=== PATIENT | female | born 1975 | race Caucasian/White ===

== ENCOUNTER 2016-04-30 19:30 | Emergency (ER) ==
[2016-04-30] MEDS ORDERED: NORCO-7.5 PO ONE (20:33)
[2016-04-30] MEDS ORDERED: ZOFRAN ODT PO ONE (20:33)
[2016-04-30 20:57] VITALS: BP 108/60
--- NOTE | 2016-04-30 20:57 | PROVIDER DOCUMENTATION ---
HPI-Musculoskeletal Pain/Inj - GENERAL Chief Complaint: Rib Pain Stated Complaint: @FALL 1500 04/27 Time Seen by Provider: 04/30/16 20:20 Source: patient - HX OF PRESENT ILLNESS-MUSKULOSKELTAL Nature of Presenting Problem: This pt presents today c complaints of R sided rib pain from a fall 3 days ago. She reports that she fell in the parking lot and landed hard on her R side. Since then she has pain c palpation and deep inspiration. She denies any bruising or obvious injury. no other injuries or complaints. Quality of Pain: reports: sharp Severity in ED: moderate Onset/Duration: 3 days ago Timing: still present Modifying Factors: improves with: movement, palpation, other (deep inspiration) Any recent injury?: Yes Similar Symptoms Previously?: No Recently seen or treated by another doctor?: No Review of Systems - Adult - REVIEW OF SYSTEMS - ADULT Constitutional: reports: no symptoms reported. denies: chills, fever Eyes: reports: no symptoms reported. denies: discharge, dry eyes Ears, Nose, Mouth & Throat: reports: no symptoms reported. denies: ear discharge, ear pain Cardiovascular: reports: chest pain (R chest wall (ribs)). denies: edema, irregular heart rate, orthopnea Respiratory: reports: see HPI. denies: chronic cough, cough Gastrointestinal: reports: no symptoms reported. denies: abdominal pain, hematemesis Genitourinary: reports: no symptoms reported. denies: dysuria, discharge Musculoskeletal: reports: see HPI, bone pain. denies: back pain, joint pain, joint swelling Integumentary: reports: no symptoms reported. denies: hives, hair loss Neurological: reports: no symptoms reported. denies: ataxia, dizziness/vertigo Psychiatric: reports: no symptoms reported. denies: anxiety, anti-depressant use Endocrine: reports: no symptoms reported Hematologic/Lymphatic: reports: no symptoms reported Allergic/Immunologic: reports: no symptoms reported All Other Systems: Reviewed and Negative Past History - Adult - PAST MEDICAL HISTORY-ADULT Review of Records: reports: Old Records Reviewed, Nursing Assessment Review, Medications Reviewed, Social history reviewed & non-contributory. Major Childhood Illnesses: reports: denies history Cardiovascular: reports: denies history Respiratory: reports: denies history Gastrointestinal: reports: GERD, ulcer Obstetrical/Gynecological: reports: denies history Genitourinary: reports: kidney stones Musculoskeletal: reports: denies history Neurological: reports: denies history Endocrine/Immune: reports: denies history Other Conditions: reports: denies history - PRIOR SURGERIES/PROCEDURES Surgical/Procedure History: reports: BTL, other (uteran surgery) - IMMUNIZATION STATUS Childhood Immunizations: See Nurse Assessment Flu Vaccine: See Nurse Assessment - FAMILY HISTORY Family History: reviewed, not pertinent Physical Exam-Injury Related - Physical Exam-Injury Related Initial Vital Signs Reviewed: Yes General Appearance: appears well, alert, no apparent distress Eyes: PERRL/EOMI, pink conjunctivae Head, Ears, Nose, Mouth & Throat: normocephalic/atraumatic, moist mucous membranes, normal ENT inspection Neck: non-tender, full range of motion, supple, normal inspection Respiratory: lungs clear, normal breath sounds, rib tenderness (Right). negative: no pleuratic chest pain, no respiratory distress, no accessory muscle use, respiratory distress, decreased breath sounds, accessory muscle use, crackles, rales, rhonchi, stridor, wheezing, decreased rate, increased rate, flail chest, palpable fracture Cardiovascular: normal peripheral pulses, regular rate, rhythm, no edema, no gallop, no JVD, no murmur. negative: bradycardia, tachycardia Abdominal Exam: normal bowel sounds, non tender, soft, no organomegaly, no pulsatile mass Rectal Exam: deferred, normal exam Back Exam: normal inspection, no CVA tenderness, no vertebral tenderness Extremity: normal range of motion, non-tender, normal gait, normal inspection Integumentary: normal color, warm/dry, blanching. negative: cyanosis, diaphoresis, abrasion, contusion(s), puncture wound(s) Neurologic: grossly normal, no motor/sensory deficits Psych/Mental Status: normal mood/affect, normal thought content, normal thought process, oriented x 3 Progress - PLAN OF CARE/RESULTS Progress/Plan/Lab Results: Orders Category Date Time Status ED: Urine Bedside ORDERED Care 04/30/16 19:45 Active Nursing- Assist w/ IS as order ORDERED Care 04/30/16 20:52 Active RIBS BILATERAL W/PA CHEST [RAD] Stat Exams 04/30/16 19:46 Taken Hydrocodone/APAP 7.5 mg/325 mg [[facility]-7.5] Med 04/30/16 20:33 Discontinued 1 each PO NOW ONE Ondansetron Odt [Zofran Odt] Med 04/30/16 20:33 Discontinued 4 mg PO NOW ONE Incentive Spirometer Stat Oth 04/30/16 20:52 Active Vital Signs Temp Pulse Resp BP Pulse Ox 04/30/16 19:38 98.4 F 105 H 18 139/101 100 No Known Allergies Allergy (Verified 04/30/16 20:26) Famotidine [Pepcid] 20 mg PO DAILY 04/30/16 - XRAY 1 XRAY: Bilateral XRAY Study: Chest, Ribs XRAY Interpretation: old fx; no acute noted Departure - Departure Time of Disposition Order: 20:58 DIAGNOSIS: Rib injury Disposition: HOME 01 Certified Medical Emergency: Urgent Condition: Good Additional Instructions: Take medication as prescribed. Follow up with your primary care provider. Use spirometer as directed. ED Follow Up Instructions: You have been treated by a care provider in the Emergency Department. These instructions are being provided to you so you can have an understanding of how to care for yourself upon discharge. Upon discharge from the Emergency Department, you are responsible for making arrangements for follow-up care by a physician of your choice. Take all prescribed medications as directed. Return to the Emergency Department immediately for any new or worsening symptoms. You may call the Physician Referral phone number at [phone] to obtain a list of Physicians who are taking new patients. Prescriptions: Hydrocodone/APAP 5 mg/325 mg [[facility]-5] 1 each PO Q6H PRN PRN #12 tablet PRN Reason: Pain Ondansetron Odt [Zofran 4 mg Odt] 4 mg PO Q6H PRN PRN #20 tablet PRN Reason: Nausea Attestation - Physician/ KEYONA Attestation Patient care was provided by Advanced Practice Provider:: Yes Advanced Practice Provider:: Papito Doyle Advanced Practice Provider documentation review:: The Mid-level provider documentation, treatment plan and medical decision making was reviewed by the physician who agrees with all treatment and medical decision making by the MLP.
--- NOTE | 2016-05-01 08:46 | Diag Imaging Result Document ---
PROCEDURE NAME: RIBS BILATERAL W/PA CHEST - 04/30/2016 PLAIN RADIOGRAPH OF THE CHEST AND BILATERAL RIBS: COMPARISON: Plain radiograph of the chest and left ribs dated 12/05/2015. FINDINGS: There are chronic healed fractures involving the posterolateral 8th rib on the left and posterolateral 9th rib on the right. There also appears to be mild irregularity involving the anterior 9th rib on the left. However, there is suggestion of bony callus indicating that it too is likely chronic. No definite acute fracture is identified, otherwise. The lungs are grossly clear, otherwise. There is no definite pleural fluid collection or pneumothorax. Cardiac silhouette and central vasculature are grossly unremarkable. IMPRESSION: Several chronic-appearing rib fractures as described but no definite acute rib fracture by plain radiograph is appreciated.
== END 2016-04-30 21:10 | disposition home or self-care (01) ==
LOC: ED 19:30
DX: S29.9XXA Unspecified injury of thorax, initial encounter (principal); R07.81 Pleurodynia; K21.9 Gastro-esophageal reflux disease without esophagitis; Z87.442 Personal history of urinary calculi; W19.XXXA Unspecified fall, initial encounter; Z79.899 Other long term (current) drug therapy
CPT/HCPCS: 71111

== ENCOUNTER 2016-05-22 11:02 | Inpatient (IN) ==
[2016-05-22 12:20] LABS: UR AMPHETAMINES QUAL NONE DETECTED (NONE DETECT); UR BARBITUATES QUAL NONE DETECTED (NONE DETECT); UR BENZODIAZEPIN QUAL NONE DETECTED (NONE DETECT); UR COCAINE QUAL NONE DETECTED (NONE DETECT); UR MDMA QUAL NONE DETECTED (NONE DETECT); UR METHADONE QUAL NONE DETECTED (NONE DETECT); UR METHAMPHETAMINE QUAL NONE DETECTED (NONE DETECT); UR OPIATES QUAL NONE DETECTED (NONE DETECT); UR OXYCODONE QUAL NONE DETECTED (NONE DETECT); UR PCP QUAL NONE DETECTED (NONE DETECT); UR TCA QUAL PRESUMPTIVE POSITIVE (NONE DETECT)
[2016-05-22 12:21] LABS: UR CANNABINOIDS QUAL NONE DETECTED (NONE DETECT)
[2016-05-22] MEDS: NICODERM PATCH TD SCH (15:06)
[2016-05-22] MEDS ORDERED: MAALOX PLUS LIQUID PO PRN (18:42)
[2016-05-22] MEDS ORDERED: ZOFRAN IV PRN (18:42)
[2016-05-22] MEDS ORDERED: ROBAXIN PO PRN (18:42)
[2016-05-22] MEDS ORDERED: LIBRIUM PO PRN (18:42)
[2016-05-22] MEDS ORDERED: TYLENOL PO PRN (18:42)
[2016-05-22] MEDS ORDERED: IMODIUM PO PRN (18:42)
[2016-05-22] MEDS ORDERED: SINEMET 25/100 PO PRN (18:42)
[2016-05-22] MEDS ORDERED: DULCOLAX PR PRN (18:42)
[2016-05-22] MEDS ORDERED: SALINE LOCK IV FLUID XX ONE (18:42)
[2016-05-22] MEDS ORDERED: BENTYL PO PRN (18:42)
[2016-05-22] MEDS ORDERED: TUBERSOL ID ONE (18:42)
[2016-05-22] MEDS ORDERED: SENOKOT PO PRN (18:42)
[2016-05-22] MEDS ORDERED: SUBOXONE 2 MG/0.5 MG SL SCH (18:45)
[2016-05-22 19:36] LABS: MANUAL DIFF NEEDED? NO
[2016-05-22 19:40] LABS: BASO% 0.6 % (0.0-0.8); EOS# 0.16 X1000 (0.0-0.7); EOS% 2.6 % (0.0-10.0); HEMATOCRIT 36.9 % (37.0-47.0); HEMOGLOBIN 12.6 g/dL (12.0-16.0); IMM GRAN# 0.01 X1000 (0.0-0.04); IMM GRAN% 0.2 % (0.0-0.5); LYMPH# 2.54 X1000 (1.2-3.4); LYMPH% 41.2 % (20.5-51.1); MCHC 34.1 g/dL (33-37); MCV 87.9 FL (81-99); MONO# 0.47 X1000 (0.11-0.59); MONO% 7.6 % (1.7-9.3); MPV 9.8 FL (7.4-10.4); NEUT% 47.8 % (42.2-75.2); PLT 287 X1000 (130-400)
[2016-05-22] MEDS: PHENERGAN PO PRN (20:00)
[2016-05-22 20:06] LABS: URINE SOURCE VOIDED
[2016-05-22 20:09] LABS: AGAP 12; ALBUMIN 3.8 g/dL (3.5-5.0); ALKALINE PHOSPHATASE 67 U/L (32-104); AMYLASE 79 U/L (20-200); BUN 5 mg/dL (8-22); CALCIUM 8.6 mg/dL (8.8-10.2); CHLORIDE 105 mmol/L (98-107); COSMO 280; GOT 12 U/L (10-30); GPT 7 U/L (10-36); LIPASE 61 U/L (13-60); SODIUM 142 mmol/L (136-145); TCO2 25 mmol/L (25-35); TOTAL PROTEIN 6.6 g/dL (6.3-8.3)
[2016-05-22 20:18] LABS: BILIRUBIN URINE NEGATIVE (NEGATIVE); BLOOD URINE 1+ (NEGATIVE); CLARITY SLIGHTLY CLOUDY (CLEAR); COLOR YELLOW; GLUCOSE URINE NEGATIVE (NEGATIVE); LEUKOCYTES URINE 1+ (NEGATIVE); NITRITE URINE NEGATIVE (NEGATIVE); PROTEIN URINE TRACE mg/dL (NEGATIVE); SP GRAVITY URINE 1.015; URINE MICROSCOPIC NEEDED? YES; UROBILINOGEN URINE NORMAL
[2016-05-22 20:19] LABS: URINE EPITHELIAL CELLS <10 /HPF (<10); URINE WBC <10 /HPF (<10)
[2016-05-22 20:19] LABS: INR 0.99 (0.86-1.15); PROTIME 13.4 Seconds (12.1-15.5); PTT PL 28.4 Seconds (22.6-43.9)
[2016-05-22] MEDS: AMBIEN PO PRN (21:35)
[2016-05-23] MEDS: PHENERGAN PO PRN ×3 (03:43→20:29)
--- NOTE | 2016-05-23 08:16 | PROGRESS NOTE ---
DATE: 05/23/2016 SUBJECTIVE: Patient notes she had a terrible night. She had lots of muscle aches, spasms, sweating. Did not sleep. She was quite restless and jittery. She was nervous, anxious most of the night. Still with some nausea this morning. Notes that her muscle aches are still severe. OBJECTIVE: Vital signs: Temperature 98, pulse 65, respiratory 17, BP 100/54, saturation 99% on room air. General: The patient is well developed, well nourished. She is currently in no real respiratory distress. She is awake, alert, oriented. Neck: Supple. CV: Regular rate. Chest: Relatively clear. Abdomen: Soft. Extremities: Moves all extremities well. Neurologic: No focal neurological changes. Skin: Warm and dry. No rashes. ASSESSMENT: 1. Nausea and vomiting. 2. Abdominal pain. 3. Tremors. 4. Myalgias. 5. Paresthesias. 6. Opiate abuse, withdrawal, and continued stabilization. PLAN: We will increase Suboxone to attempt to alleviate her symptoms as 4 mg was not completely enough. Again, discussed with patient the perils of use and abuse. Discussed with her ways to wean off Suboxone. Discussed with her outpatient life counseling. cc: Kyle Greenfield MD
[2016-05-23] MEDS: VITAMIN B-1 PO SCH (08:53)
[2016-05-23] MEDS: NICODERM PATCH TD SCH (08:53)
[2016-05-23] MEDS: FOLIC ACID PO SCH (08:53)
[2016-05-23] MEDS: SUBOXONE 8 MG/2 MG SL SCH ×2 (08:53→20:29)
[2016-05-23] MEDS: MOTRIN PO PRN ×2 (09:56→21:28)
[2016-05-23] MEDS: MULTI-VITAMIN PO SCH (10:33)
[2016-05-23] MEDS: AMBIEN PO PRN (21:28)
[2016-05-24 07:53] VITALS: BP 106/74
[2016-05-24] MEDS: SUBOXONE 8 MG/2 MG SL SCH (08:57)
[2016-05-24] MEDS: NICODERM PATCH TD SCH (08:57)
[2016-05-24] MEDS: MULTI-VITAMIN PO SCH (08:57)
[2016-05-24] MEDS: FOLIC ACID PO SCH (08:57)
[2016-05-24] MEDS: VITAMIN B-1 PO SCH (08:57)
[2016-05-24] MEDS: PHENERGAN PO PRN (09:01)
--- NOTE | 2016-06-03 15:15 | HISTORY AND PHYSICAL ---
CHIEF COMPLAINT: Nausea and vomiting. HISTORY OF PRESENT ILLNESS: Patient is a 40-year-old female who presented to [facility] secondary to nausea, vomiting, abdominal pain. Notes that she has been using and abusing opiates. Each time she stops, her symptoms become too severe and she has to start using to alleviate her symptoms. SOCIAL HISTORY: Patient lives at home in [place]. She is . Has 3 children under the age of 18. She is on disability. SUBSTANCE ABUSE HISTORY: The patient began using opiates as early as age 18. Currently takes 8 or more 10 mg pills a day. Started smoking at age 16, currently smokes 1 to 1-1/2 packs a day. Denies any drinking or other illicit substances. REVIEW OF SYSTEMS: CINA score is 18 secondary to nausea, vomiting, abdominal pain, tremors with arms extended, occasional dry heaves, frequent crampy abdominal pain, severe muscle aches, tremors occasionally. Notes that she has not been sleeping well. She has not been eating well. She has had a decreased oral intake. Denies any chest pain, palpitations. Denies any fevers or chills. Denies dysuria, frequency, urgency. Denies hesitancy, polyuria, polydipsia. Denies skin rashes, weight loss, or weight gain. Does note that she has paroxysmal sweating, frequent jitteriness and breathlessness. PAST MEDICAL HISTORY: No current active medical problems. MEDICATIONS: None. ALLERGIES: None. FAMILY HISTORY: Noncontributory. PHYSICAL EXAMINATION: VITAL SIGNS: Afebrile. Blood pressure is stable. Heart rate 80, respiratory 18. GENERAL: Patient is awake, alert, oriented. She is pleasant to talk with although she has to frequently be redirected to answer questions as she is easily confused and forgets to answer. HEENT: Normocephalic, atraumatic. [place]. NECK: Supple. CARDIOVASCULAR: Regular rate. CHEST: Relatively clear. ABDOMEN: Soft and nondistended. EXTREMITIES: Moves all extremities. NEUROLOGIC: No focal neurological changes. SKIN: Warm and dry. No rashes. DIAGNOSTIC DATA: Pending. ASSESSMENT: 1. Nausea and vomiting. 2. Abdominal pain. 3. Tremors. 4. Myalgias. 5. Paresthesias. 6. Paroxysmal sweating. 7. Opiate abuse, withdrawal, and stabilization. 8. Chronic tobacco abuse. PLAN: Discussed with patient the perils of smoking as well as ways to stop. Discussed with patient the use of Suboxone to help control her opiate withdrawal symptoms. Discussed with her outpatient counseling as well as lifestyle changes. Will admit to the hospital for stabilization. Continue to follow. cc: Kyle Greenfield MD
--- NOTE | 2016-06-03 20:42 | DISCHARGE SUMMARY ---
ADMISSION DATE: 05/22/2016 DISCHARGE DATE: 05/24/2016 DISCHARGE DIAGNOSIS: 1. Nausea, vomiting, abdominal pain. 2. Myalgias. 3. Paresthesias. 4. Opiate abuse, withdrawal and stabilization. 5. Chronic tobacco abuse. Again, discussed with patient the perils of smoking as well as ways to stop. CONSULTATIONS: None. PROCEDURES: None. BRIEF HOSPITAL COURSE: Patient is a 40-year-old female who lives at home. She was admitted to the hospital, treated in the usual fashion, placed on Suboxone which she tolerated very well. The dose was slowly increased to 8/2 twice a day to alleviate her withdrawal symptoms. On discharge, patient is awake, alert, oriented. She is feeling better. States that she feels better than she has in quite some time. DISPOSITION: 35 minutes was spent in discharge planning and instructions. Discussed with patient that she needs to avoid all persons, places, situations which she has been using and abusing in the past. She needs outpatient life counseling as well as drug counseling. cc: Kyle Greenfield MD
== END 2016-05-24 09:40 | disposition home or self-care (01) ==
LOC: P.DIRADM 11:02 → P.MEDSURG 11:12
PROVIDERS: ADMIT Family Medicine; ATTEND Family Medicine